=== PATIENT | male | born 1990 | race African-American/Black ===

== ENCOUNTER 2020-04-13 18:58 | Emergency (ER) | payer OTHER ==
[~2020-04-13] VITALS: Ht 172.7 cm; Wt 106.6 kg
[2020-04-13] MEDS ORDERED: PREDNISONE20 MG PO (20:57)
== END 2020-04-13 21:35 | disposition home or self-care (01) ==
LOC: ED 18:58
DX: T75.1XXA Unspecified effects of drowning and nonfatal submersion, initial encounter (principal); J18.9 Pneumonia, unspecified organism; Z87.891 Personal history of nicotine dependence
CPT/HCPCS: 71045; 80053; 85025; 99285-25; J1100; J7030

== ENCOUNTER 2021-01-07 08:58 | Emergency (ER) | payer OTHER ==
[~2021-01-07] VITALS: Ht 172.7 cm; Wt 106.6 kg
[~2021-01-07 08:58] MED LIST: PREDNISONE20 MG PO
[2021-01-07] MEDS ORDERED: HYDROCODON-ACE1 EA11 PO (10:02)
[2021-01-07] MEDS ORDERED: CRUTCH1 EACH MISC ×2 (10:02→10:07)
== END 2021-01-07 10:35 | disposition home or self-care (01) ==
LOC: ED 08:58
DX: S86.811A Strain of other muscle(s) and tendon(s) at lower leg level, right leg, initial encounter (principal); X58.XXXA Exposure to other specified factors, initial encounter; Z87.891 Personal history of nicotine dependence
CPT/HCPCS: 73560; 99283-25; A9270

== ENCOUNTER 2021-02-26 16:03 | Emergency (ER) | payer OTHER ==
[~2021-02-26] VITALS: Ht 172.7 cm; Wt 99.8 kg
[~2021-02-26 16:03] MED LIST changes: +CRUTCH1 EACH MISC; +HYDROCODON-ACE1 EA11 PO
[2021-02-26] MEDS ORDERED: HYDROXYZINE HCL10 MG PO (16:27)
[2021-02-26] MEDS ORDERED: SERTRALINE HCL50 MG PO (16:27)
== END 2021-02-26 19:09 | disposition home or self-care (01) ==
LOC: ED 16:03
DX: T75.4XXA Electrocution, initial encounter (principal); S76.101A Unspecified injury of right quadriceps muscle, fascia and tendon, initial encounter; S29.9XXA Unspecified injury of thorax, initial encounter; Z87.891 Personal history of nicotine dependence; Z79.899 Other long term (current) drug therapy; W86.8XXA Exposure to other electric current, initial encounter
CPT/HCPCS: 73560; 99283-25